=== PATIENT | male | born 1960 | race Caucasian/White ===

== ENCOUNTER 2016-11-28 08:10 | Day surgery (SDC) | payer OTHER ==
[~2016-11-28] VITALS: Ht 177.8 cm; Wt 81.2 kg
[~2016-11-28 08:10] MED LIST: FURO40TA PO; LANT3I SC; METO-429 PO; NIFE30TA66 PO; NOVO3I SC
[2016-11-28 08:30] VITALS: BP 203/106; PULSE 71; RESP 16
[2016-11-28 08:50] VITALS: Ht 177.8 cm; Wt 81.2 kg
[2016-11-28] MEDS ORDERED: hydrALAzine 20 MG INJ IV ONE (09:00)
[2016-11-28] MEDS ORDERED: METO25TA4 PO (09:18)
[2016-11-28] MEDS ORDERED: HYDR-3672 PO (09:19)
[2016-11-28 09:20] VITALS: BP 204/105; PULSE 68; RESP 16
[2016-11-28] MEDS ORDERED: ATOR40TA68 PO (09:21)
[2016-11-28] MEDS ORDERED: GLIP-95 PO (09:21)
[2016-11-28] MEDS ORDERED: SPIR50TA PO (09:22)
[2016-11-28] MEDS ORDERED: MIDAZOLAM 1 MG/ML 2 ML INJ ONE ×3 (09:24→09:41)
[2016-11-28] MEDS ORDERED: FENTAnyl 50 MCG/ML VIAL ONE ×2 (09:25)
[2016-11-28] MEDS ORDERED: LIDOCAINE 2% VISC 15 ML CUP ONE (09:26)
[2016-11-28 09:50] VITALS: BP 132/74; PULSE 66; RESP 15
[2016-11-28 10:25] VITALS: BP 123/72; PULSE 65; RESP 18
[2016-11-28] MEDS ORDERED: REGADENOSON 0.4 MG/5 ML SYG ONE (11:00)
--- NOTE | 2016-11-28 11:02 | SP ---
DATE OF PROCEDURE: 11/28/2016 PROCEDURE PERFORMED: Transesophageal echocardiogram. DESCRIPTION OF THE PROCEDURE: Under monitor sedation, SOHAIL probe was advanced into the esophagus and multiple images were captured to study the mitral, aortic, tricuspid valves and including color Dop pler. 1. Left ventricle: Left ventricular systolic function was normal. Estimated left ventricular ejec tion fraction was 60%. 2. Mitral valve: Louise valve aperture was normal. There was mild mitral valvular regurgitation. 3. Left atrium was normal. 4. Right ventricle: Right ventricular systolic function was normal. Cavity size was normal. 5. Tricuspid valve: Tricuspid valve aperture was normal. There was mild tricuspid valvular regurg itation. 6. Right atrium was normal. 7. Aortic valve: Aortic valve leaflet was calcified. There was no aortic stenosis, but there was sclerosis with mild aortic valvular regurgitation. CONCLUSION: 1. Normal left ventricular systolic function. Estimated left ventricular ejection fraction was 60% with no segmental wall motion abnormality. 2. Aortic sclerosis with no stenosis with mild aortic valvular regurgitation. 3. Mild tricuspid valvular regurgitation. 4. Mild mitral valvular regurgitation. 5. Moderate pulmonary hypertension. RVSP was calculated at 41 mmHg. 6. No pericardial effusion. Dictated By: FRANK OLIVER MD SR/NTS Conf#: [id number] DID#: [id number]
--- NOTE | 2016-11-28 11:52 | CARRPT ---
DATE OF PROCEDURE: 11/28/2016 PROCEDURE: Left heart catheterization. TYPE OF PROCEDURE: Lexiscan Cardiolite stress test. INDICATION: Aortic stenosis. REQUESTING PHYSICIAN: Dr. Renteria. BASELINE VITAL SIGNS AND ELECTROCARDIOGRAM: Pulse 71, blood pressure 142/77. Electrocardiogram rev eals sinus rhythm, rate of 71 with normal axis and inferior and lateral T-wave inversions. PROCEDURE: The patient underwent standard Lexiscan infusion protocol over 10 seconds followed by ra diolabeled tracer. The patient's test was stopped due to completion of protocol. Maximal achieved blood pressure during the test of 142/77. Maximum heart rate during the test of 77. SYMPTOMS: The patient had complaints of mild shortness breath during stress test that resolved in r ecovery. No chest pain. ECG FINDINGS: The patient did not develop any new Lexiscan-induced ST or T-wave changes from baseli ne abnormalities. Rare PVC. IMPRESSION: 1. No Lexiscan-induced ST or T-wave changes from baseline abnormalities which is diagnostic for car diac ischemia. 2. Complaints of shortness of breath during stress test that resolved in recovery. 3. No complaints of chest pain during stress testing. 4. Rare premature ventricular contractions during stress test. 5. Report of nuclear images to follow in separate dictation. Dictated By: CANDELARIO ZARCO/JONH Conf#: [id number] DID#: [id number]
[2016-11-28 12:20] VITALS: BP 141/82; PULSE 79; RESP 18
[2016-11-28 12:38] VITALS: BP 138/80; PULSE 75; RESP 18
--- NOTE | 2016-11-28 12:43 | RADRPT ---
PROCEDURE: Lexiscan myocardial perfusion study CLINICAL INDICATION: 56 -year-old patient complaining of chest pain. TECHNIQUE: Lexiscan 0.4 mg intravenously separate acquisition gated myocardial perfusion SPECT usi ng Tc 99m Myoview 30.4 mCi intravenously at stress and Tc-99m Myoview, 9.9 mCi intravenously at rest was performed using the rest/stress sequence. Poststress Myoview SPECT images were obtained in the supine position. COMPARISON: No prior studies. FINDINGS: Perfusion images reveal no evidence of perfusion defects. Lexiscan post stress gated SPECT images demonstrate no wall motion abnormalities. IMPRESSION: 1. No evidence of perfusion defects. 2. No wall motion abnormalities. 3. The left ventricle ejection fraction at stress is 52%. RPTAT: HH .Altagracia Keen MD, Date Time Electronically viewed and signed by .Altagracia Keen MD, on 11/28/2016 12:42 .L/
== END 2016-11-28 12:38 | disposition home or self-care (01) ==
LOC: SDS 08:10
PROVIDERS: ATTEND Internal Medicine Cardiovascular Disease
DX: R06.02 Shortness of breath (principal); I70.0 Atherosclerosis of aorta; I07.1 Rheumatic tricuspid insufficiency; I34.0 Nonrheumatic mitral (valve) insufficiency; I27.2 Other secondary pulmonary hypertension
CPT/HCPCS: 78452; 82962; 93017; 93312; 93325; A9500; A9505; J0360; J2250; J2785; J3010; Z7610

== ENCOUNTER 2017-05-16 07:15 | Day surgery (SDC) | payer OTHER ==
--- NOTE | 2017-05-15 18:01 | PREOPHP ---
DATE OF ADMISSION: 05/16/2017 HISTORY: A 55-year-old male patient seen in the office 08/2016 for evaluation of left ear pain and blockage, noted to have a mass in the left external auditory canal. CT scan demonstrates a soft tis zhen mass in the left external auditory canal measuring 9 x 5 mm. Audiogram demonstrates conductive hearing loss. The patient is now admitted to the hospital for corrective surgery. The patient has been cleared for surgery by his gaming cage cashier, Dr. Renteria. PAST MEDICAL HISTORY: ALLERGIES: NONE. MEDICAL CONDITIONS: Diabetes, high blood pressure, glaucoma. MEDICATIONS: 1. Glipizide. 2. Hydralazine. 3. Metoprolol. 4. Amantadine. PRIOR SURGERY: Eye surgery. CLOTTING DISORDERS: None. HABITS: Alcohol: None. Tobacco 1/2 pack a day. Recreational drugs: None. REVIEW OF SYSTEMS: Negative. PHYSICAL EXAMINATION GENERAL: Well-developed, well-nourished male patient in no acute distress. HEAD: Normocephalic. No masses or deformities. Ears and tympanic membranes, there is a soft tiss ue mass occluding the left external auditory canal. NOSE: Clear. OROPHARYNX: Clear. NECK: No masses or adenopathy. CHEST: Clear to P and A. HEART: Regular sinus rhythm without murmurs. ABDOMEN: Soft. Bowel sounds normal. No masses or megaly. EXTREMITIES: Full range of motion without deformity. NEUROLOGIC: Physiologic. RECTAL: Not done. IMPRESSION: Left external auditory canal mass. RECOMMENDATIONS: Admit for surgery. Dictated By: MARISEL GUTIÉRREZ/JOHN Conf#: [id number] DID#: [id number]
[2017-05-16] VITALS (13 sets, daily range): BP systolic 93–135; BP diastolic 56–74; PULSE 61–68; RESP 15–31; Ht 175.3 cm; Wt 74.0 kg
[~2017-05-16] VITALS: Ht 175.3 cm; Wt 74.0 kg
[~2017-05-16 07:15] MED LIST changes: +ATOR40TA68 PO; +FURO-109 PO; -FURO40TA PO; +GLIP-95 PO; +HYDR-3672 PO; -METO-429 PO; +METO25TA4 PO; -NIFE30TA66 PO; +SPIR50TA PO
[2017-05-16] MEDS ORDERED: LANT3I SC (07:45)
[2017-05-16] MEDS ORDERED: DILT120C97 PO (07:48)
[2017-05-16] MEDS ORDERED: LIDOCAINE 2% (SDV) 5 ML INJ ONE (12:48)
[2017-05-16] MEDS ORDERED: PROPOFOL 20 ML ONE (12:48)
[2017-05-16] MEDS ORDERED: MIDAZOLAM 1 MG/ML 2 ML INJ ONE (12:49)
[2017-05-16] MEDS ORDERED: FENTAnyl 50 MCG/ML VIAL ONE (12:49)
[2017-05-16] MEDS ORDERED: LIDOCAINE 2%/EPI 30 ML INJ ONE (13:06)
[2017-05-16] MEDS ORDERED: GELATIN SIZE 100 SPONGE ONE (13:06)
[2017-05-16] MEDS ORDERED: EPINEPHrine 1 MG INJ ONE (13:06)
[2017-05-16] MEDS ORDERED: ONDANSETRON 4 MG INJ ONE (13:32)
[2017-05-16] MEDS ORDERED: METOCLOPRAMIDE 10 MG INJ ONE (13:32)
[2017-05-16] MEDS ORDERED: GLUCOSE GEL 15 GRAM TUBE PO PRN ×2 (14:00)
[2017-05-16] MEDS ORDERED: PROCHLORPERAZINE 10 MG INJ IV PRN (14:00)
[2017-05-16] MEDS ORDERED: DEXTROSE 50% 50 ML SYRINGE IV PRN ×2 (14:00)
[2017-05-16] MEDS ORDERED: ONDANSETRON 4 MG INJ IV PRN (14:00)
[2017-05-16] MEDS ORDERED: INSULIN ASPART [NOVOLOG] 3 ML PEN SC ONE (14:00)
[2017-05-16] MEDS ORDERED: hydrALAzine 20 MG INJ IV PRN (14:00)
[2017-05-16] MEDS ORDERED: GLUCAGON 1 MG INJ IM PRN (14:00)
[2017-05-16] MEDS ORDERED: HYDROmorphONE (0.2 MG/ML) 10ML SYG IV PRN (14:00)
[2017-05-16] MEDS ORDERED: GLUCOSE GEL 15 GRAM TUBE BUCCAL PRN (14:00)
[2017-05-16] MEDS ORDERED: DIPHENHYDRAMINE 50 MG INJ IV PRN (14:00)
[2017-05-16] MEDS ORDERED: EPHEDrine SULFATE 50 MG/5 ML SYG IV PRN (14:00)
[2017-05-16] MEDS ORDERED: FENTAnyl 50 MCG/ML VIAL IV PRN (14:00)
[2017-05-16] MEDS ORDERED: MEPERIDINE 25 MG INJ IV PRN (14:00)
[2017-05-16] MEDS ORDERED: OXYCODONE/ACETAMINOPHEN (5/325) TAB PO PRN ×2 (14:00)
[2017-05-16] MEDS ORDERED: LABETALOL HCL 20MG INJ IV PRN (14:00)
--- NOTE | 2017-05-17 07:20 | OPR ---
DATE OF OPERATION: PREOPERATIVE DIAGNOSIS: Left ear mass versus foreign body. POSTOPERATIVE DIAGNOSIS: Left ear foreign body with tympanic membrane perforation. PROCEDURE PERFORMED: Left ear exam under anesthesia, removal of left ear foreign body and left tymp anoplasty. DESCRIPTION OF OPERATION: The patient was brought to the operating room under parenteral sedation, general anesthesia by LMA. Left ear was prepped and draped in the usual manner and examined with a Zeiss operating microscope. A foreign body was noted lodged deeply in the left external auditory ca nal. This was removed with forceps. A tympanic membrane tear was noted in this area, which appeare d to be chronic. There was no bleeding noted. Accordingly, the margins of the tympanic membrane pe rforation were debrided with a John needle. The middle ear was filled with dry Gelfoam. An incisi on was made over the posterior earlobe. A small amount of earlobe fat was excised and set aside for later use as a graft. The incision was closed with a 5-0 nylon suture. The graft was then brought into the operative field and placed so as to cover all the margins of the perforation. A disk of c ompressed Gelfoam was placed lateral to the tympanic membrane and the ear canal filled with dry Gelf oam. A light cotton Band-Aid dressing was applied. The patient was awakened in the operating room and returned to recovery in excellent condition. ESTIMATED BLOOD LOSS: Nil. COMPLICATIONS: None. Dictated By: MARISEL GUTIÉRREZ/JOHN Conf#: [id number] DID#: [id number]
--- NOTE | 2017-05-17 10:13 | RADRPT ---
Vent Rate: 63 bpm RR Interval: 0 msec [place] Interval: 194 msec QRS Duration: 92 msec QT Interval: 462 msec QTC Interval: 472 msec P-R-T [place]: 55 - 46 - 0 degrees Normal sinus rhythm T wave abnormality, consider inferolateral ischemia Prolonged QT Abnormal ECG Electronically Signed By: Joaquin Byrne [id number]
== END 2017-05-16 15:25 | disposition home or self-care (01) ==
LOC: SDS 07:15
PROVIDERS: ATTEND Otolaryngology Otolaryngology/Facial Plastic Surgery
DX: T16.2XXA Foreign body in left ear, initial encounter (principal); H72.92 Unspecified perforation of tympanic membrane, left ear; E11.22 Type 2 diabetes mellitus with diabetic chronic kidney disease; I12.0 Hypertensive chronic kidney disease with stage 5 chronic kidney disease or end stage renal disease; N18.6 End stage renal disease; Z99.2 Dependence on renal dialysis; Z79.4 Long term (current) use of insulin; Z72.0 Tobacco use; X58.XXXA Exposure to other specified factors, initial encounter; Y93.9 Activity, unspecified; Y99.9 Unspecified external cause status; Y92.9 Unspecified place or not applicable
CPT/HCPCS: 69205; 69631; 82962; 93005; J0171; J2250; J2405; J2765; J3010; Z7512; Z7610; J1815

== ENCOUNTER 2017-09-17 08:15 | Day surgery (SDC) | payer OTHER ==
[~2017-09-17] VITALS: Ht 172.7 cm; Wt 75.0 kg
[2017-09-17] VITALS (7 sets, daily range): BP systolic 107–123; BP diastolic 68–81; PULSE 64–80; RESP 12–19; Ht 172.7 cm; Wt 75.0 kg
[~2017-09-17 08:15] MED LIST changes: -ATOR40TA68 PO; +CEFAZOLIN 1 GM INJ ONE; +DILT120C97 PO; -FURO-109 PO; -GLIP-95 PO; -HYDR-3672 PO; -METO25TA4 PO; -NOVO3I SC; +SOD CHLORIDE 0.9% 1,000 ML IV SCH; -SPIR50TA PO
[2017-09-17] MEDS ORDERED: GELATIN SIZE 100 SPONGE ONE (09:14)
[2017-09-17] MEDS ORDERED: HEPARIN 1000 UNITS/ML 10 ML INJ ONE (09:15)
[2017-09-17] MEDS ORDERED: BUPIVACAINE 0.5% (SDV) 30 ML INJ ONE (09:15)
[2017-09-17] MEDS ORDERED: LIDOCAINE 1% (STERILE-PAK) 30 ML INJ ONE (09:15)
[2017-09-17] MEDS ORDERED: THROMBIN 5000 UNIT VIAL ONE (09:15)
--- NOTE | 2017-09-17 09:43 | RADRPT ---
PROCEDURE: XR Chest. CLINICAL INDICATION: Preop TECHNIQUE: Single portable view of the chest was obtained COMPARISON: July 11, 2016 FINDINGS: The trachea is midline. The cardiac silhouette and pulmonary vascularity are within normal limits. T he lungs are clear. The costophrenic angles are sharp. Status post basement of a right sided PermCat h IMPRESSION: 1. No evidence of acute cardiopulmonary disease. 2. Right sided PermCath in satisfactory position. No gross pneumothorax. RPTAT: AAPP Physician Marcello Date Time Electronically viewed and signed by Ruben Ruiz Physician on 09/17/2017 09:42 YADIRA/
[2017-09-17] MEDS ORDERED: LIDOCAINE 2% (SDV) 5 ML INJ ONE (09:45)
[2017-09-17] MEDS ORDERED: PROPOFOL 20 ML ONE ×2 (09:45→10:50)
[2017-09-17] MEDS ORDERED: FENTAnyl 50 MCG/ML VIAL ONE (09:46)
[2017-09-17] MEDS ORDERED: MIDAZOLAM 1 MG/ML 2 ML INJ ONE (09:46)
[2017-09-17] MEDS ORDERED: PROCHLORPERAZINE 10 MG INJ IV PRN (11:00)
[2017-09-17] MEDS ORDERED: FENTAnyl 50 MCG/ML VIAL IV PRN (11:00)
[2017-09-17] MEDS ORDERED: MEPERIDINE 25 MG INJ IV PRN (11:00)
[2017-09-17] MEDS ORDERED: hydrALAzine 20 MG INJ IV PRN (11:00)
[2017-09-17] MEDS ORDERED: HYDROmorphONE (0.2 MG/ML) 10ML SYG IV PRN ×3 (11:00)
[2017-09-17] MEDS ORDERED: ONDANSETRON 4 MG INJ IV PRN (11:00)
[2017-09-17] MEDS ORDERED: LABETALOL HCL 20MG INJ IV PRN (11:00)
[2017-09-17] MEDS ORDERED: DIPHENHYDRAMINE 50 MG INJ IV PRN (11:00)
[2017-09-17] MEDS ORDERED: OXYCODONE/ACETAMINOPHEN (5/325) TAB PO PRN (11:00)
[2017-09-17] MEDS ORDERED: SOD CHLORIDE 0.9% 1,000 ML IV SCH (11:54)
--- NOTE | 2017-09-17 11:54 | SIPON ---
Date/Time of Note Date/Time of Note DATE: 09/17/17 TIME: 11:53 Operative Report Preoperative Diagnosis ESRD Postoperative Diagnosis Same Operation/Procedure Performed TIM Infante AVF creation Surgeon Kristal Jimenez MD occupational therapy assistant N/A Anesthesia: MAC Estimated blood loss: minimal Transfusion Required none Specimen None Grafts/Implants none Complications none KRISTAL JIMENEZ MD Sep 17, 2017 11:54
--- NOTE | 2017-09-17 11:54 | SIPON ---
Date/Time of Note Date/Time of Note DATE: 09/17/17 TIME: 11:53 Operative Report Preoperative Diagnosis ESRD Postoperative Diagnosis Same Operation/Procedure Performed TIM Infante AVF creation Surgeon Kristal Jimenez MD assistant dean N/A Anesthesia: MAC Estimated blood loss: minimal Transfusion Required none Specimen None Grafts/Implants none Complications none KRISTAL JIMENEZ MD Sep 17, 2017 11:54
--- NOTE | 2017-09-17 11:54 | SIPON ---
Date/Time of Note Date/Time of Note DATE: 09/17/17 TIME: 11:53 Operative Report Preoperative Diagnosis ESRD Postoperative Diagnosis Same Operation/Procedure Performed TIM Infante AVF creation Surgeon Kristal Jimenez MD advertising assistant N/A Anesthesia: MAC Estimated blood loss: minimal Transfusion Required none Specimen None Grafts/Implants none Complications none KRISTAL JIMENEZ MD Sep 17, 2017 11:54
--- NOTE | 2017-09-17 22:44 | RADRPT ---
Vent Rate: 71 bpm RR Interval: 0 msec [place] Interval: 188 msec QRS Duration: 94 msec QT Interval: 450 msec QTC Interval: 489 msec P-R-T [place]: 71 - 50 - 0 degrees Normal sinus rhythm T wave abnormality, consider inferolateral ischemia Prolonged QT Abnormal ECG Electronically Signed By: Bunny Gonzalez [id number]
--- NOTE | 2017-09-17 22:44 | RADRPT ---
Vent Rate: 71 bpm RR Interval: 0 msec [place] Interval: 188 msec QRS Duration: 94 msec QT Interval: 450 msec QTC Interval: 489 msec P-R-T [place]: 71 - 50 - 0 degrees Normal sinus rhythm T wave abnormality, consider inferolateral ischemia Prolonged QT Abnormal ECG Electronically Signed By: Bunny Gonzalez [id number]
--- NOTE | 2017-09-17 22:44 | RADRPT ---
Vent Rate: 71 bpm RR Interval: 0 msec [place] Interval: 188 msec QRS Duration: 94 msec QT Interval: 450 msec QTC Interval: 489 msec P-R-T [place]: 71 - 50 - 0 degrees Normal sinus rhythm T wave abnormality, consider inferolateral ischemia Prolonged QT Abnormal ECG Electronically Signed By: Bunny Gonzalez [id number]
--- NOTE | 2017-09-18 04:39 | OPR ---
DATE OF OPERATION: 09/17/2017 PREOPERATIVE DIAGNOSIS: End-stage renal disease. POSTOPERATIVE DIAGNOSIS: End-stage renal disease. PROCEDURE: Left upper extremity radiocephalic arteriovenous fistula. SURGEON: Dr. Kristal Wong ANESTHESIA: MAC and local. ANESTHESIOLOGIST: Dr. Romero ESTIMATED BLOOD LOSS: Minimal. COMPLICATIONS: None. SPECIMENS: None. PREOPERATIVE INDICATIONS: This is a 56-year-old gentleman with end-stage renal disease on dialysis via right IJ Perm-A-Cath. He now presents for permanent AV access. The indications, risks and benefits of the procedure were discussed with the patient, who understood and agreed to proceed. DESCRIPTION OF PROCEDURE: The patient was properly identified, brought to the operating room and placed in a supine position. The patient was induced with MAC anesthesia throughout the course of the procedure without any difficulty. He received preoperative antibiotics. His left upper extremity was prepped and draped in usual sterile fashion. Ultrasound evaluation of the superficial veins demonstrated that the cephalic vein in the forearm was adequate in diameter for fistula creation. Thus, a left arm Naresh AV fistula was planned. Local anesthesia was injected into the planned longitudinal incision site at the wrist, in between the area of the radial artery and the cephalic vein. A 15 -blade scalpel was used to create the skin incision. The incision was then deepened through the subcutaneous tissue using electrocautery. The cephalic vein was identified, isolated and circumferentially dissected free. Tributaries were ligated and divided accordingly. The vein was then flushed and distended with heparinized saline. It was of adequate caliber for fistula creation. A #3 coronary dilator was passed through the vein to ensure patency. The vein was then controlled using a small bulldog clamp. Next, the radial artery was then isolated. This was done by incising the fascia and dissecting out the radial veins off the artery. It was noted to be somewhat calcified, but patent with good pulse. It was circumferentially dissected free and the patient was then heparinized with 2000 units of intravenous heparin. The radial artery was then controlled and an arteriotomy was created using an 11- blade scalpel. This was then extended using Christiansen scissors. The vein was then trimmed and spatulated accordingly. A 6-0 Prolene suture was then used to create the end-to-side anastomosis. Prior to completion of the suture line, the anastomosis was back-bled and forward-bled and then was instilled with heparinized saline. Suture line was then completed. Hemostasis was obtained using thrombin-soaked Gelfoam. With release of the clamps, there was a good flow throughout the distal portion of the fistula. There was a weak thrill more proximally. Doppler evaluation demonstrated continuous flow throughout the cephalic vein in the mid forearm; however, there was a stronger, almost pulsatile flow at the distal forearm. Additional lysis of soft tissue bands around this area of the fistula was then performed. This resulted in improvement of the flow. However, there was still some pulsatility and this may be due to some venous valves that may be present. For the time being, the flow was adequate and there was still biphasic signal at the radial artery distal to the anastomosis. After hemostasis was assured, the subcutaneous tissues were closed using 3-0 Vicryl sutures. The skin was closed using 4-0 Monocryl in a subcuticular fashion. Steri-Strips and dry dressings were then placed. The patient was then awoken from his MAC anesthesia without any difficulty. He was transferred to recovery in good condition. There were no immediate complications. Dictated By: KRISTAL GONZALES/JOHN Conf#: [id number] DID#: [id number] JADON
== END 2017-09-17 13:49 | disposition home or self-care (01) ==
LOC: SDS 08:15
PROVIDERS: ATTEND Surgery
DX: I12.0 Hypertensive chronic kidney disease with stage 5 chronic kidney disease or end stage renal disease (principal); N18.6 End stage renal disease; E11.9 Type 2 diabetes mellitus without complications
CPT/HCPCS: 36821; 71010; 80048; 80053; 82962; 85025; 85610; 85730; 93005; J0690; J1644; J2250; J3010; Z7512; Z7610; C1725

== ENCOUNTER 2018-06-03 19:00 | Inpatient (IN) | END 2018-06-06 14:16 | disposition home or self-care (01) | DRG 291 ==

== ENCOUNTER 2018-06-12 15:26 | Outpatient (CLI) | END 2018-06-12 16:53 | disposition home or self-care (01) ==

== ENCOUNTER 2018-10-02 09:38 | Day surgery (SDC) | END 2018-10-02 15:17 | disposition home or self-care (01) ==

== ENCOUNTER 2018-10-21 12:06 | Day surgery (SDC) | END 2018-10-21 16:00 | disposition home or self-care (01) ==

== ENCOUNTER 2019-03-03 13:54 | Day surgery (SDC) | payer OTHER ==
[~2019-03-03] VITALS: Ht 167.6 cm; Wt 77.6 kg
[~2019-03-03 13:54] MED LIST changes: +AMLO5TAB4 PO; +ASPI81TA52 PO; +CARV12.579 PO; -CEFAZOLIN 1 GM INJ ONE; -DILT120C97 PO; +LOSA50TA14 PO; -SOD CHLORIDE 0.9% 1,000 ML IV SCH; +TRAM50TA PO
[2019-03-03 14:44] VITALS: BP 133/62; PULSE 70; RESP 16
[2019-03-03 14:54] VITALS: Ht 167.6 cm; Wt 77.6 kg
[2019-03-03] MEDS ORDERED: SOD CHLORIDE 0.9% 500 ML IV SCH (15:00)
--- NOTE | 2019-03-03 15:39 | SIPON ---
Date/Time of Note Date/Time of Note DATE: 03/03/19 TIME: 15:37 Operative Report Preoperative Diagnosis ESRD, LUE AVF w/ weak flow and infiltration Postoperative Diagnosis same Operation/Procedure Performed LUE fistulogram with venoplasty Surgeon see signature line assistant brand manager N/A Anesthesia: other (local) Estimated blood loss: minimal Transfusion Required none Specimen N/A Grafts/Implants none Complications none KRISTAL JIMENEZ MD Mar 03, 2019 15:39
[2019-03-03] MEDS ORDERED: ACETAMINOPHEN 325 MG TAB PO PRN (16:00)
[2019-03-03 16:20] VITALS: BP 135/64; PULSE 65; RESP 18
--- NOTE | 2019-03-04 08:26 | OPR ---
DATE OF OPERATION: 03/03/2019 PREOPERATIVE DIAGNOSES: End-stage renal disease, left AV fistula dysfunction. POSTOPERATIVE DIAGNOSES: End-stage renal disease, left AV fistula dysfunction. PROCEDURE: Left arm arteriovenous fistulogram with venoplasty. ANESTHESIA: Local. ESTIMATED BLOOD LOSS: Minimal. SPECIMENS: None. COMPLICATIONS: None. PREOPERATIVE INDICATIONS: This is a 58-year-old gentleman with multiple medical conditions including end-stage renal disease on dialysis via left arm AV fistula. Recently he had 2 episodes of infiltration and difficulties at dialysis. He was noted to have a full flow at the fistula on exam. He now presents for a fistulogram with possible intervention. The indications, risks and benefits of the procedure were discussed with the patient and his family, who understood and agreed to proceed. DESCRIPTION OF PROCEDURE: The patient was properly identified, brought to the angiography suite, placed in the supine position. His left arm was prepped and draped in the usual sterile fashion. Ultrasound was used to evaluate the fistula which was noted to be overall patent; however, there was a possible significant stenosis at the inflow. He also had noted a large tributaries and somewhat aneurysmal degeneration of the fistula at the distal forearm. Local anesthesia was injected into the planned access site at the proximal forearm. A micropuncture needle was used to access the fistula under direct ultrasound guidance. A micropuncture wire was then advanced under fluoroscopy. A micropuncture sheath was then exchanged. Fistulogram was then performed, which demonstrated multiple large tributaries along with aneurysmal degeneration of the fistula distally. There was a severe stenosis at the inflow limb of the fistula. The remainder of the fistula was patent with the upper extremity, arms veins being patent along the central veins. The patient does have a right-sided pacemaker. In addition, the fistula gave off 2 very large tributaries at the mid and the proximal forearm. Given these findings, intervention was planned. The micropuncture sheath was exchanged for a 6-Occitan short sheath. Using a floppy Glidewire, the severe lesion was able to be crossed. Angiography confirmed the correct position of the wire. A 6 x 40 mm balloon was then advanced and used for venoplasty directly over the lesion. This resolved after inflating the balloon to 14 atmospheres of pressure. This was a sustained insufflation. The balloon was then deflated and removed. Angiography from marked improvement in luminal diameter and flow. In addition, there was much stronger thrill that was palpated on exam. Given these findings, the procedure was terminated here. The devices were removed. A 4-0 Monocryl pursestring was placed over the access site and the sheath was removed and additional hemostasis was obtained using manual compression. At the end, there was a good thrill throughout the course of the fistula. The patient tolerated the procedure well without any immediate complications and was transferred in good condition. Dictated By: KRISTAL GONZALES/JOHN Conf#: [id number] DID#: [id number] CC: KRISTAL Buckner;*EndCC* MTDD
== END 2019-03-03 16:46 | disposition home or self-care (01) ==
LOC: SDS 13:54 → CCL 13:54
PROVIDERS: ATTEND Surgery
DX: T82.898A Other specified complication of vascular prosthetic devices, implants and grafts, initial encounter (principal); Y84.1 Kidney dialysis as the cause of abnormal reaction of the patient, or of later complication, without mention of misadventure at the time of the procedure; I12.0 Hypertensive chronic kidney disease with stage 5 chronic kidney disease or end stage renal disease; N18.6 End stage renal disease; E11.9 Type 2 diabetes mellitus without complications
CPT/HCPCS: 36902; 82962; 84132; C1725; C1894; Z7610